=== PATIENT | male | born 1940 | race Caucasian/White ===

== ENCOUNTER → 2016-12-10 | Outpatient (CLI) | payer MEDICARE, BC ==
[~2016-12-10] MED LIST: 1-ME1LIQ PO; ARIC5TAB PO; ASPI81 CHEW; ATOR20TA42 PO; COUM3TAB PO; FURO20TA PO; LAMO150T PO; LISI40TA PO; POTA-267 PO; SERT-129 PO; TRAZ150T75 PO; XANA2TAB2 PO
[2016-12-10 12:10] LABS: INTERNATIONAL NORMALIZED RATIO 2.9 RATIO; PROTHROMBIN TIME - PATIENT 33.5 SEC (9.8-11.6)
== END ==
LOC: CLAB 11:37
PROVIDERS: ATTEND Internal Medicine Interventional Cardiology
DX: Z79.01 Long term (current) use of anticoagulants (principal)
CPT/HCPCS: 36415; 85610

== ENCOUNTER → 2017-01-22 | Outpatient (CLI) | payer MEDICARE, BC ==
[2017-01-22 16:01] LABS: INTERNATIONAL NORMALIZED RATIO 3.2 RATIO; PROTHROMBIN TIME - PATIENT 36.8 SEC (9.8-11.6)
== END ==
LOC: CLAB 14:39
PROVIDERS: ATTEND Internal Medicine Interventional Cardiology
DX: Z51.81 Encounter for therapeutic drug level monitoring (principal); Z79.01 Long term (current) use of anticoagulants
CPT/HCPCS: 36415; 85610

== ENCOUNTER → 2017-03-19 | Outpatient (CLI) | payer MEDICARE, BC ==
[2017-03-19 15:33] LABS: INTERNATIONAL NORMALIZED RATIO 2.8 RATIO; PROTHROMBIN TIME - PATIENT 32.8 SEC (9.8-11.6)
== END ==
LOC: CLAB 14:53
PROVIDERS: ATTEND Internal Medicine Interventional Cardiology
DX: Z79.01 Long term (current) use of anticoagulants (principal)
CPT/HCPCS: 36415; 85610

== ENCOUNTER → 2017-04-17 | Outpatient (CLI) | payer MEDICARE, BC ==
[2017-04-17 13:39] LABS: INTERNATIONAL NORMALIZED RATIO 3.3 RATIO; PROTHROMBIN TIME - PATIENT 38.6 SEC (9.8-11.6)
== END ==
LOC: CLAB 13:08
PROVIDERS: ATTEND Internal Medicine Interventional Cardiology
DX: Z79.01 Long term (current) use of anticoagulants (principal)
CPT/HCPCS: 36415; 85610

== ENCOUNTER → 2017-06-16 | Outpatient (CLI) | payer MEDICARE, BC ==
[2017-06-16 14:38] LABS: INTERNATIONAL NORMALIZED RATIO 1.9 RATIO; PROTHROMBIN TIME - PATIENT 21.5 SEC (9.8-11.6)
== END ==
LOC: CLAB 14:13
PROVIDERS: ATTEND Internal Medicine Interventional Cardiology
DX: Z79.01 Long term (current) use of anticoagulants (principal)
CPT/HCPCS: 36415; 85610

== ENCOUNTER → 2017-07-08 | Outpatient (CLI) | payer MEDICARE, BC ==
[2017-07-08 09:19] LABS: INTERNATIONAL NORMALIZED RATIO 4.5 RATIO; PROTHROMBIN TIME - PATIENT 53.5 SEC (9.8-11.6)
== END ==
LOC: CLAB 08:41
PROVIDERS: ATTEND Internal Medicine Interventional Cardiology
DX: Z79.01 Long term (current) use of anticoagulants (principal)
CPT/HCPCS: 36415; 85610

== ENCOUNTER → 2017-07-16 | Outpatient (CLI) | payer MEDICARE, BC ==
[2017-07-16 12:34] LABS: PROTHROMBIN TIME - PATIENT 92.6 SEC (9.8-11.6)
[2017-07-16 12:50] LABS: INTERNATIONAL NORMALIZED RATIO 7.7 RATIO
== END ==
LOC: CLAB 11:56
PROVIDERS: ATTEND Internal Medicine Interventional Cardiology
DX: Z79.01 Long term (current) use of anticoagulants (principal)
CPT/HCPCS: 36415; 85610

== ENCOUNTER → 2017-07-18 | Outpatient (CLI) | payer MEDICARE, BC ==
[2017-07-18 10:24] LABS: PROTHROMBIN TIME - PATIENT 84.3 SEC (9.8-11.6)
== END ==
LOC: CLAB 09:43
PROVIDERS: ATTEND Internal Medicine Interventional Cardiology
DX: Z79.01 Long term (current) use of anticoagulants (principal)
CPT/HCPCS: 36415; 85610

== ENCOUNTER → 2017-07-21 | Outpatient (CLI) | payer MEDICARE, BC ==
[2017-07-21 09:59] LABS: HEMATOCRIT 31.4 % (39.0-51.0); MEAN CELL VOLUME 90.1 FL (80.0-100.0); MEAN CORPUSCULAR HEMOGLOBIN 29.8 PG (27.0-34.0); MEAN CORPUSCULAR HGB CONC 33.1 % (32.0-36.0); PLATELET COUNT 237 TH/MM3 (150-450); RED BLOOD COUNT 3.49 MIL/MM3 (4.50-5.90); RED CELL DISTRIBUTION WIDTH 12.7 % (11.6-17.2); REVIEW FLAG FINAL; WHITE BLOOD COUNT 6.4 TH/MM3 (4.0-11.0)
[2017-07-21 10:01] LABS: INTERNATIONAL NORMALIZED RATIO 2.2 RATIO
[2017-07-21 10:13] LABS: BICARBONATE 27.3 MEQ/L (21.0-32.0); POTASSIUM 4.1 MEQ/L (3.5-5.1)
[2017-07-21 10:17] LABS: HDL CHOLESTEROL 66.5 MG/DL (40.0-60.0)
== END ==
LOC: CLAB 09:24
PROVIDERS: ATTEND Internal Medicine Interventional Cardiology
DX: E78.00 Pure hypercholesterolemia, unspecified (principal); Z79.01 Long term (current) use of anticoagulants; Z79.899 Other long term (current) drug therapy
CPT/HCPCS: 36415; 80048; 80061; 84450; 84460; 85027; 85610

== ENCOUNTER → 2017-08-05 | Outpatient (CLI) | payer MEDICARE, BC ==
[2017-08-05 10:36] LABS: INTERNATIONAL NORMALIZED RATIO 4.1 RATIO; PROTHROMBIN TIME - PATIENT 48.2 SEC (9.8-11.6)
== END ==
LOC: CLAB 10:09
PROVIDERS: ATTEND Internal Medicine Interventional Cardiology
DX: Z79.01 Long term (current) use of anticoagulants (principal)
CPT/HCPCS: 36415; 85610

== ENCOUNTER → 2017-08-18 | Outpatient (CLI) | payer MEDICARE, BC ==
[2017-08-18 12:21] LABS: INTERNATIONAL NORMALIZED RATIO 2.9 RATIO; PROTHROMBIN TIME - PATIENT 33.5 SEC (9.8-11.6)
== END ==
LOC: CLAB 11:48
PROVIDERS: ATTEND Internal Medicine Interventional Cardiology
DX: Z79.01 Long term (current) use of anticoagulants (principal)
CPT/HCPCS: 36415; 85610

== ENCOUNTER → 2017-10-08 | Outpatient (CLI) | payer MEDICARE, BC ==
[2017-10-08 14:14] LABS: INTERNATIONAL NORMALIZED RATIO 1.6 RATIO; PROTHROMBIN TIME - PATIENT 16.1 SEC (9.8-11.6)
== END ==
LOC: CLAB 13:37
PROVIDERS: ATTEND Internal Medicine Interventional Cardiology
DX: Z79.01 Long term (current) use of anticoagulants (principal)
CPT/HCPCS: 36415; 85610

== ENCOUNTER → 2017-10-15 | Outpatient (CLI) | payer MEDICARE, BC ==
[2017-10-15 15:20] LABS: INTERNATIONAL NORMALIZED RATIO 2.3 RATIO; PROTHROMBIN TIME - PATIENT 23.2 SEC (9.8-11.6)
== END ==
LOC: CLAB 14:22
PROVIDERS: ATTEND Internal Medicine Interventional Cardiology
DX: Z79.01 Long term (current) use of anticoagulants (principal)
CPT/HCPCS: 36415; 85610

== ENCOUNTER → 2017-11-10 | Outpatient (CLI) | payer MEDICARE, BC ==
[2017-11-10 11:37] LABS: INTERNATIONAL NORMALIZED RATIO 1.6 RATIO; PROTHROMBIN TIME - PATIENT 16.2 SEC (9.8-11.6)
== END ==
LOC: CLAB 10:48
PROVIDERS: ATTEND Internal Medicine Interventional Cardiology
DX: Z79.01 Long term (current) use of anticoagulants (principal)
CPT/HCPCS: 36415; 85610

== ENCOUNTER → 2017-11-26 | Outpatient (CLI) | payer MEDICARE, BC ==
[2017-11-26 10:09] LABS: INTERNATIONAL NORMALIZED RATIO 2.5 RATIO; PROTHROMBIN TIME - PATIENT 25.1 SEC (9.8-11.6)
== END ==
LOC: CLAB 09:29
PROVIDERS: ATTEND Internal Medicine Interventional Cardiology
DX: Z79.01 Long term (current) use of anticoagulants (principal)
CPT/HCPCS: 36415; 85610

== ENCOUNTER → 2018-01-05 | Outpatient (CLI) | payer MEDICARE, BC ==
[2018-01-05 11:52] LABS: INTERNATIONAL NORMALIZED RATIO 2.9 RATIO; PROTHROMBIN TIME - PATIENT 28.8 SEC (9.8-11.6)
== END ==
LOC: CLAB 11:20
PROVIDERS: ATTEND Internal Medicine Interventional Cardiology
DX: Z79.01 Long term (current) use of anticoagulants (principal)
CPT/HCPCS: 36415; 85610

== ENCOUNTER → 2018-02-06 | Outpatient (CLI) | payer MEDICARE, BC ==
[2018-02-06 12:15] LABS: INTERNATIONAL NORMALIZED RATIO 3.3 RATIO; PROTHROMBIN TIME - PATIENT 33.5 SEC (9.8-11.6)
== END ==
LOC: CLAB 11:40
PROVIDERS: ATTEND Internal Medicine Interventional Cardiology
DX: Z79.01 Long term (current) use of anticoagulants (principal)
CPT/HCPCS: 36415; 85610

== ENCOUNTER → 2018-03-20 | Outpatient (CLI) | DX: E78.00 Pure hypercholesterolemia, unspecified (principal); R60.0 Localized edema; I25.10 Atherosclerotic heart disease of native coronary artery without angina pectoris; I11.9 Hypertensive heart disease without heart failure; R00.1 Bradycardia, unspecified; I36.1 Nonrheumatic tricuspid (valve) insufficiency; I34.0 Nonrheumatic mitral (valve) insufficiency; Z79.899 Other long term (current) drug therapy; Z79.01 Long term (current) use of anticoagulants ==

== ENCOUNTER → 2018-04-16 | Outpatient (CLI) | payer MEDICARE, BC ==
[2018-04-16 14:20] LABS: PROTHROMBIN TIME - PATIENT 50.2 SEC (9.8-11.6)
== END ==
LOC: CLAB 13:55
PROVIDERS: ATTEND Internal Medicine Interventional Cardiology
DX: Z79.01 Long term (current) use of anticoagulants (principal)
CPT/HCPCS: 36415; 85610

== ENCOUNTER → 2018-04-22 | Outpatient (CLI) | payer MEDICARE, BC ==
[2018-04-22 12:48] LABS: INTERNATIONAL NORMALIZED RATIO 1.9 RATIO; PROTHROMBIN TIME - PATIENT 19.3 SEC (9.8-11.6)
== END ==
LOC: PLAB 12:14
PROVIDERS: ATTEND Internal Medicine Interventional Cardiology
DX: Z79.01 Long term (current) use of anticoagulants (principal); Z95.2 Presence of prosthetic heart valve
CPT/HCPCS: 36415; 85610

== ENCOUNTER → 2018-04-29 | Outpatient (CLI) | payer MEDICARE, BC ==
[2018-04-29 14:39] LABS: INTERNATIONAL NORMALIZED RATIO 3.3 RATIO; PROTHROMBIN TIME - PATIENT 33.7 SEC (9.8-11.6)
== END ==
LOC: CLAB 14:09
PROVIDERS: ATTEND Internal Medicine Interventional Cardiology
DX: Z79.01 Long term (current) use of anticoagulants (principal)
CPT/HCPCS: 36415; 85610

== ENCOUNTER 2018-06-09 16:24 | Inpatient (IN) ==
[2018-06-09 19:31] LABS: Baso % (Auto) 0.7 % (0.0-2.0); Eos # (Auto) 0.1 th/mm3 (0.0-0.4); Eos % (Auto) 1.9 % (0.0-4.0); Hematocrit 30.6 % (39.0-51.0); Hemoglobin 10.2 gm/dL (13.0-17.0); Lymph # (Auto) 1.3 th/mm3 (1.0-4.8); Lymph % (Auto) 19.9 % (9.0-44.0); Mean Corpuscular HGB Conc 33.2 % (32.0-36.0); Mean Corpuscular Volume 93.2 fL (80.0-100.0); Mean Platelet Volume 8.1 fL (7.0-11.0); Mono # (Auto) 0.4 th/mm3 (0.0-0.9); Neut # (Auto) 4.7 th/mm3 (1.8-7.7); Neut % (Auto) 71.5 % (16.0-70.0); Platelet Count 213 th/mm3 (150-450); Red Blood Count 3.29 mil/mm3 (4.50-5.90); Red Cell Distribution Width 13.5 % (11.6-17.2); White Blood Count 6.6 th/mm3 (4.0-11.0)
[2018-06-09 19:55] LABS: Albumin 3.8 g/dL (3.4-5.0); Anion Gap 9 meq/L (5-15); Aspartate Aminotransferase 26 U/L (15-37); Blood Urea Nitrogen 53 mg/dL (7-18); Calcium 9.1 mg/dL (8.5-10.1); Carbon Dioxide 21.1 meq/L (21.0-32.0); Chloride 111 meq/L (98-107); Glomerular Filtration Rate 35 mL/min (>89); Glucose,Random 88 mg/dL (74-106); Potassium 6.2 meq/L (3.5-5.1); Sodium 141 meq/L (136-145)
[2018-06-09 19:57] LABS: Alanine Aminotransferase 23 U/L (12-78)
[2018-06-09 19:58] LABS: Alkaline Phosphatase 102 U/L (45-117); Total Protein 8.4 g/dL (6.4-8.2)
--- NOTE | 2018-06-09 22:58 | XR ---
EXAM DATE: 06/09/2018 10:53 PM EDT AGE/SEX: 77 years / Male INDICATIONS: Cough. Congestion. CLINICAL DATA: This is the patient's initial encounter. Patient reports that signs and symptoms have been present for 3 days and indicates a pain score of 5/10. MEDICAL/SURGICAL HISTORY: Cardiovascular disease. CABG. COMPARISON: [facility], CHEST SINGLE AP, 07/25/2016. . FINDINGS: Sternotomy wires and cardiomegaly are noted. Mediastinal clips are present. Lungs are clear. CONCLUSION: Clear lungs. Electronically signed by: Guy Regalado MD 06/09/2018 10:56 PM EDT
--- NOTE | 2018-06-09 23:09 | ED ---
HPI General Chief complaint: Recheck/Abnormal Lab/Rx Stated complaint: [facility] Time Seen by Provider: 06/09/18 22:32 Source: patient Limitations: no limitations History of Present Illness HPI narrative: The patient is a 77 year old male who presents to the [facility] emergency department with a history of being told that he needed to come to the emergency department for laboratory studies as his potassium was noted to be high as an outpatient earlier today. The patient reports that he went to his [facility] primary care physician earlier today and had his usual exam and outpatient labs. He was called at home and told that the potassium was high. The patient is unsure whether he is on any potassium supplementation. He does not know the name of his medications, however his daughter will be bringing his list in the ED. the patient denies having any known prior history of kidney disease. The patient reports that he has felt well. He denies having any palpitations, chest pain, weakness, numbness or tingling to his extremities. Otherwise on review of systems, the patient denies having any known recent fevers, cough, congestion, neck pain, shortness of breath, abdominal pain, vomiting, diarrhea, urinary symptoms, or other neurologic symptoms. Related Data Allergies Allergy/AdvReac Type Severity Reaction Status Date / Time ibuprofen Allergy Severe Anaphylaxis Verified 06/09/18 23:21 Review of Systems ROS: all other systems reviewed are negative (Except for that which was mentioned in the HPI.) [facility] Medical History Medical History HTN (hypertension) (Acute) High cholesterol (Acute) Surgical History Surgical History H/O mitral valve replacement (Acute) History of appendectomy (Acute) History of quadruple bypass (Acute) Hx of heart surgery (Acute) Mechanical heart valve present (Acute) Social History Social History Substance History: No History of Abuse Smoking Status: Former smoker How Often Do You Have a Drink Containing Alcohol: Never Recent Travel in [facility] within the Last 8 Weeks: No Recent Out of Country Travel within the Last 8 Weeks: No Immunization History Tetanus Immunization: Unsure Hx Influenza Vaccine This Season: No Exam Const General: cooperative, no acute distress and well developed Nutritional Appearance: well nourished Orientation: alert, awake and oriented x3 HENMT Head: normocephalic and atraumatic Nose: no nasal discharge and no epistaxis Mouth: moist mucous membranes Throat: posterior oropharynx normal and uvula midline Eyes Sclera: normal sclerae Pupils: PERRL Neck Neck: no meningeal signs, trachea midline and no JVD Resp Effort & Inspection: no use of accessory muscles Auscultation: clear to auscultation bilaterally Cardio Rate: regular rate Rhythm: regular rhythm Heart Sounds: click (Audible click related to mitral valve replacement.) and no murmurs GI Inspection: non-distended Palpation: soft, no hepatosplenomegaly and nontender Auscultation: normal bowel sounds Back/Spine/Pelvis Back: no CVA tenderness Skin General: dry skin (warm) Neuro General: alert, awake and oriented x3 Cranial Nerves: other (No facial asymmetry) Speech: speech normal Motor: no movement abnormalities noted Extrem General: normal to inspection (No calf tenderness on palpation. 2+ pulses in all 4 extremities.), no clubbing, no cyanosis and no edema Psych Mood: congruent mood Affect: normal affect Judgment: judgment good Course Consultations Consultation #1: The patient's case including history, pertinent physical examination findings, and laboratory studies were discussed with Dr. Tan. It was agreed that the patient would be admitted to the hospitalist service. Initial Documented Vital Signs Temperature 98.8 F 06/09/18 16:43 Pulse Rate 59 L 06/09/18 16:43 Respiratory Rate 16 06/09/18 16:43 Blood Pressure 151/68 H 06/09/18 16:43 Pulse Oximetry 98 06/09/18 16:43 Last Documented Vital Signs Temperature 98.8 F 06/09/18 16:43 Pulse Rate 54 L 06/09/18 23:59 Respiratory Rate 16 06/09/18 23:59 Blood Pressure 180/106 H 06/09/18 23:59 Pulse Oximetry 98 06/09/18 23:59 Medical Decision Making MDM Narrative Medical decision making narrative: During the course of the patient's emergency department visit, the patient's history, examination, and differential diagnosis were reviewed with the patient. The patient was placed on a surveillance system monitor with oximetry and frequent blood pressure monitoring. The patient had IV access obtained and blood work sent for analysis. The diagnostic evaluation was started regarding the patient's hyperkalemia. An EKG was done on arrival that showed some peaked T waves in V3, V4. The patient's diagnostic evaluation revealed a potassium of 6.2. The patient was given calcium chloride 1 g IV, Kayexalate 15 mL p.o. 1. The patient was given regular insulin and dextrose to shift the potassium. The patient's chemistry was otherwise remarkable for a protein of 8.4, GFR 35, creatinine of 1.86, chloride 111, BUN 53, PT 22.4, INR 2.2, hemoglobin is 6.6, platelets 213 with 71.5 neutrophils, 10.2 hemoglobin. The patient's chest x-ray reveals no acute abnormality. The patient will be admitted to the hospital for renal insufficiency associated with hyperkalemia. The patient's results were discussed with the patient, including the plan of care. I explained that further testing and/ or monitoring is indicated based on the patient's history, examination, and/ or laboratory findings. Therefore, I recommended admission for additional evaluation. The patient expressed understanding and was agreeable with this plan. The patient was admitted to the hospital in stable condition and sent to a bed under the care of the [facility] service. Differential Diagnosis Differential Diagnosis: Lab error, versus renal failure with hyperkalemia, versus oversupplementation with p.o. potassium supplement, versus DHRUV inhibitor induced hyperkalemia Medical Records Medical records reviewed: Yes I reviewed the patient's medical records. Lab Data Lab results reviewed: Yes I reviewed the patient's lab results. Result diagrams: 06/09/18 17:55 06/09/18 17:55 Lab Results 06/09/18 06/09/18 Range/Units 17:55 17:55 WBC 6.6 (4.0-11.0) th/mm3 RBC 3.29 L (4.50-5.90) mil/mm3 Hgb 10.2 L (13.0-17.0) gm/dL Hct 30.6 L (39.0-51.0) % MCV 93.2 (80.0-100.0) fL MCH 31.0 (27.0-34.0) pg MCHC 33.2 (32.0-36.0) % RDW 13.5 (11.6-17.2) % Plt Count 213 (150-450) th/mm3 MPV 8.1 (7.0-11.0) fL Neut % (Auto) 71.5 H (16.0-70.0) % Lymph % (Auto) 19.9 (9.0-44.0) % [place] % (Auto) 6.0 (0.0-8.0) % Eos % (Auto) 1.9 (0.0-4.0) % Baso % (Auto) 0.7 (0.0-2.0) % Neut # (Auto) 4.7 (1.8-7.7) th/mm3 Lymph # (Auto) 1.3 (1.0-4.8) th/mm3 [place] # (Auto) 0.4 (0.0-0.9) th/mm3 Eos # (Auto) 0.1 (0.0-0.4) th/mm3 Baso # (Auto) 0.0 (0.0-0.2) th/mm3 WBC Differential . Differential Comment Auto diff final Sodium 141 (136-145) meq/L Potassium 6.2 H (3.5-5.1) meq/L Chloride 111 H (98-107) meq/L Carbon Dioxide 21.1 (21.0-32.0) meq/L Anion Gap 9 (5-15) meq/L BUN 53 H (7-18) mg/dL Creatinine 1.86 H (0.60-1.30) mg/dL Estimated GFR 35 L (>89) mL/min Random Glucose 88 (74-106) mg/dL Calcium 9.1 (8.5-10.1) mg/dL Total Bilirubin 0.3 (0.2-1.0) mg/dL AST 26 (15-37) U/L ALT 23 (12-78) U/L Alkaline Phosphatase 102 (45-117) U/L Total Protein 8.4 H (6.4-8.2) g/dL Albumin 3.8 (3.4-5.0) g/dL Imaging Data Radiologist's impression: Chest X-Ray 06/09/18 22:34 CONCLUSION: Clear lungs. ECG Data Attestation: I personally reviewed and interpreted this ECG as follows: Interpretation: The patient had an EKG done on arrival that shows a heart rate of 50, QRS duration 101 ms, QTC [address] segment elevation. T waves are inverted in aVL, V1, V2. Peak T waves are noted in V3, V4. Discharge Plan Discharge Disposition Patient Disposition: 30 Still Patient Discharge Details Diagnosis: Acute hyperkalemia, Renal insufficiency Physicians Team ED Provider: Justina Saleem Primary Care Provider: [facility] Attending Provider: Carole Tan Discharge Interventions Interventions: Vital Signs Last Done: 06/09/18 23:59 Status ED Status: Admitted Patient
[2018-06-09] MEDS ORDERED: Calcium Chloride Inj 1 GM in Dextrose 5% in Water Inj 100 ML IV.SIG ONE ×2 (23:12)
[2018-06-09] MEDS ORDERED: Sodium Polystyrene Sulfonate/Sorbitol Liq 15 GM/60 ML UDC PO ONE (23:13)
[2018-06-09] MEDS ORDERED: Dextrose 50% in Water 50 ML Vial IV.PUSH ONE (23:13)
[2018-06-10] MEDS ORDERED: Acetaminophen 325 MG Tablet PO PRN (03:41)
[2018-06-10] MEDS ORDERED: Temazepam 15 MG Capsule PO PRN (03:41)
[2018-06-10] MEDS ORDERED: Bisacodyl 10 MG Supp RECTAL PRN (03:41)
[2018-06-10] MEDS: Sod Chloride 0.9% Inj 1,000 ML IV.CONT SCH ×2 (04:22→14:56)
[2018-06-10 06:34] LABS: Calcium 9.7 mg/dL (8.5-10.1); Carbon Dioxide 22.5 meq/L (21.0-32.0); Potassium 5.4 meq/L (3.5-5.1)
[2018-06-10] MEDS: Senna/Docusate Sodium 8.6/50 MG Tablet PO SCH ×2 (08:44→21:16)
[2018-06-10 14:09] LABS: INR 2.4 Ratio; Prothrombin Time 23.9 sec (9.8-11.6)
--- NOTE | 2018-06-10 14:09 | P.HPIM ---
History of Present Illness Primary Care Physician: [facility] Chief Complaint: My doctor told me to come here because of abnormal labs History of Present Illness: 77-year-old white male with a history of hypertension, hyperlipidemia, coronary artery disease was sent to the emergency room secondary to having abnormal labs particular elevation in potassium by his primary care physician through the [place]. Patient states that he was asymptomatic with no symptoms of chest pain, palpitations, muscle weakness or numbness nor any cramping. He says he does not take potassium supplements. Reviewing his medication list with him it seems like he is on DHRUV inhibitor lisinopril. He is urinating without any difficulty. He has no other complaints at this time. - Diagnosis (1) Acute hyperkalemia (2) CKD (chronic kidney disease) stage 3, GFR 30-59 ml/min Inpatient Certification: I certify that the inpatient services were ordered in accordance with Medicare regulations governing the order. This includes certification that hospital inpatient services are reasonable and necessary and in the case of services not specified as inpatient-only under 42 CFR 419.22(n), that they are appropriately provided as inpatient services in accordance to with the 2-midnight benchmark under 43 CFR 412.3(e) Estimated Total Length of Stay (Days): 2 Plans for Post Hospital Care: Home Review of Systems All other systems reviewed negative except as stated in HPI PMFSH - History History Provided By: Patient - Medical History Medical History: Medical History (Last Reviewed 06/10/18 @ 14:01 by Sera Colvin MD) HTN (hypertension) High cholesterol - Surgical History Surgical History: Surgical History (Last Reviewed 06/10/18 @ 14:01 by Sera Colvin MD) H/O mitral valve replacement History of appendectomy History of quadruple bypass Hx of heart surgery Mechanical heart valve present - Family History Family History: Family History (Last Updated 06/10/18 @ 14:01 by Sera Colvin MD) Mother COPD (chronic obstructive pulmonary disease) Father Alcohol abuse - Tobacco History Smoking Status: Former smoker - Alcohol History How Often Do You Have a Drink Containing Alcohol: Never - Substance Use History Substance History: No History of Abuse - Travel History Recent Travel in the [place] Within the Last 8 Weeks: No Recent Travel Out of the Country Within the Last 8 Weeks: No - Immunization History Tetanus Immunization: Unsure Hx Influenza Vaccine This Season: No Medications and Allergies Active Medications: Active Medications Acetaminophen (Tylenol) 650 mg PO Q4H PRN PRN Reason: Temp > 100.4 Al Hydroxide/Mg Hydroxide (Milk Of Magnesia Liq) 30 ml PO Q12H PRN PRN Reason: Mild Constipation Bisacodyl (Dulcolax Supp) 10 mg RECTAL DAILY PRN PRN Reason: SEVERE CONSITIPATION Sodium Chloride (Ns Inj) 1,000 mls @ 100 mls/hr IV.CONT .Q10H [facility] Last Infusion: 06/10/18 13:44 Dose: Infused Lactulose (Lactulose Liq) 30 ml PO DAILY PRN PRN Reason: SEVERE CONSITIPATION Ondansetron HCl (Zofran Inj) 4 mg IV.PUSH Q6H PRN PRN Reason: NAUSEA OR VOMITING Senna/Docusate Sodium (Beckie-Colace) 1 tab PO BID [facility] Last Admin: 06/10/18 08:44 Dose: Not Given Sennosides (Senokot) 17.2 mg PO Q12H PRN PRN Reason: Moderate Constipation Temazepam (Restoril) 15 mg PO HS PRN PRN Reason: INSOMNIA Allergies Allergy/AdvReac Type Severity Reaction Status Date / Time ibuprofen Allergy Severe Anaphylaxis Verified 06/09/18 23:21 Home Medications Medication Instructions Recorded Confirmed Type alprazolam 2 mg PO HS PRN 06/10/18 06/10/18 History aspirin [Aspir-81] 81 mg PO DAILY 06/10/18 06/10/18 History atorvastatin 40 mg PO DAILY 06/10/18 06/10/18 History furosemide 20 mg PO DAILY 06/10/18 06/10/18 History lamotrigine 150 mg PO HS 06/10/18 06/10/18 History lamotrigine 300 mg PO DAILY 06/10/18 06/10/18 History lisinopril 40 mg PO DAILY 06/10/18 06/10/18 History sertraline 100 mg PO DAILY 06/10/18 06/10/18 History trazodone 100 mg PO DAILY 06/10/18 06/10/18 History warfarin 3 mg PO DAILY 06/10/18 06/10/18 History Exam Vital signs: Vital Signs 06/09/18 16:43 06/09/18 23:00 06/09/18 23:59 Temperature 98.8 F Pulse Rate 59 L 52 L 54 L Respiratory Rate 16 18 16 Blood Pressure 151/68 H 169/77 H 180/106 H Pulse Oximetry 98 99 98 06/10/18 00:40 06/10/18 03:00 06/10/18 03:41 Temperature 98.6 F Pulse Rate 42 L 56 L 55 L Respiratory Rate 16 16 16 Blood Pressure 163/72 H 165/72 H Pulse Oximetry 99 99 06/10/18 05:25 Temperature Pulse Rate 48 L Respiratory Rate 16 Blood Pressure 146/66 H Pulse Oximetry 98 Intake & Output 06/09/18 06/10/18 06/10/18 18:59 06:59 18:59 Intake Total 1110 / 1110 Balance 1110 / 1110 Weight 71.668 kg Intake: IV 1110 / 1110 NS Inj 1,000 ML @ 100 mls/hr IV 1000 / 1000 .CONT .Q10H [facility] Rx#:[id number] Narrative: GENERAL: Well-nourished well-developed white female in no acute distress SKIN: Warm and dry. HEAD: Atraumatic. Normocephalic. EYES: Pupils equal and round. No scleral icterus. No injection or drainage. ENT: No nasal bleeding or discharge. Mucous membranes pink and moist. NECK: Trachea midline. No JVD. CARDIOVASCULAR: Regular rate and rhythm. RESPIRATORY: No accessory muscle use. Clear to auscultation. Breath sounds equal bilaterally. GASTROINTESTINAL: Abdomen soft, non-tender, nondistended. Hepatic and splenic margins not palpable. MUSCULOSKELETAL: Extremities without clubbing, cyanosis, or edema. No obvious deformities. NEUROLOGICAL: Awake and alert to person place time and situation. No obvious cranial nerve deficits. Motor grossly within normal limits. Five out of 5 muscle strength in the arms and legs. Normal speech. PSYCHIATRIC: Appropriate mood and affect; insight and judgment normal. Results - Labs CBC & Chem 7: 06/09/18 17:55 06/10/18 04:52 Labs: Short CBC 06/09/18 Range/Units 17:55 WBC 6.6 (4.0-11.0) th/mm3 Hgb 10.2 L (13.0-17.0) gm/dL Hct 30.6 L (39.0-51.0) % Plt Count 213 (150-450) th/mm3 [facility] 06/09/18 06/10/18 17:55 04:52 Sodium 141 142 Potassium 6.2 H 5.4 H D Chloride 111 H 112 H Carbon Dioxide 21.1 22.5 BUN 53 H 50 H Creatinine 1.86 H 1.73 H Calcium 9.1 9.7 Liver Function 06/09/18 Range/Units 17:55 Total Bilirubin 0.3 (0.2-1.0) mg/dL AST 26 (15-37) U/L ALT 23 (12-78) U/L Alkaline Phosphatase 102 (45-117) U/L Albumin 3.8 (3.4-5.0) g/dL - Imaging Impressions Chest X-Ray 06/09/18 22:34 CONCLUSION: Clear lungs. Caprini VTE Risk Assessment Caprini VTE Risk Assessment: Moderate/High Risk (score >= 2) Caprini Risk Assessment Model: Point Value = 1 Point Value = 2 Point Value = 3 Point Value = 5 Age 41-60 Minor surgery BMI > 25 kg/m2 Swollen legs Varicose veins or History of unexplained or recurrent spontaneous Oral contraceptives or hormone replacement Sepsis (< 1 month) Serious lung disease, including pneumonia (< 1 month) Abnormal pulmonary function Acute myocardial infarction Congestive heart failure (< 1 month) History of inflammatory bowel disease Medical patient at bed rest Age 61-74 Arthroscopic surgery Major open surgery (> 45 min) Laparoscopic surgery (> 45 min) Malignancy Confined to bed (> 72 hours) Immobilizing plaster cast Central venous access Age >= 75 History of VTE Family history of VTE Factor V Leiden Prothrombin [id number] Lupus anticoagulant Anticardiolipin antibodies Elevated serum homocysteine Heparin-induced thrombocytopenia Other congenital or acquired thrombophilia Stroke (< 1 month) Elective arthroplasty Hip, pelvis, or leg fracture Acute spinal cord injury (< 1 month) Prophylaxis Regimen: Total Risk Factor Score Risk Level Prophylaxis Regimen 0-1 Low Early ambulation 2 Moderate Order ONE of the following: *Sequential Compression Device (SCD) *Heparin 5000 units SQ BID 3-4 Higher Order ONE of the following medications: *Heparin 5000 units SQ TID *Enoxaparin/Lovenox 40 mg SQ daily (WT < 150 kg, CrCl > 30 mL/min) *Enoxaparin/Lovenox 30 mg SQ daily (WT < 150 kg, CrCl > 10-29 mL/min) *Enoxaparin/Lovenox 30 mg SQ BID (WT < 150 kg, CrCl > 30 mL/min) AND/OR *Sequential Compression Device (SCD) 5 or more Highest Order ONE of the following medications: *Heparin 5000 units SQ TID (Preferred with Epidurals) *Enoxaparin/Lovenox 40 mg SQ daily (WT < 150 kg, CrCl > 30 mL/min) *Enoxaparin/Lovenox 30 mg SQ daily (WT < 150 kg, CrCl > 10-29 mL/min) *Enoxaparin/Lovenox 30 mg SQ BID (WT < 150 kg, CrCl > 30 mL/min) AND *Sequential Compression Device (SCD) Assessment and Plan - Assessment (1) Acute hyperkalemia Code(s): E87.5 - Hyperkalemia Status: Acute (2) CKD (chronic kidney disease) stage 3, GFR 30-59 ml/min Code(s): N18.3 - Chronic kidney disease, stage 3 (moderate) Status: Acute - Plan 77-year-old white male with a history of hypertension hyperlipidemia CAD was sent to the emergency room secondary to abnormal lab work by his primary care physician 1. Severe hyperkalemia Monitor on telemetry; intervention done in the emergency room with dextrose and insulin with calcium and Kayexalate Stop home lisinopril and repeat levels 2. Hypertension, chronic essentialstop lisinopril due to severe hyperkalemia 3. Hyperlipidemiaresume statin 4. CAD with history of mitral valve replacementresume aspirin and warfarin 5. Chronic kidney disease stage IIIhold lisinopril 6. DVT prophylaxiswarfarin, monitor PT/INR
[2018-06-10] MEDS: Sertraline 100 MG Tablet PO SCH (15:48)
[2018-06-10] MEDS: Furosemide 20 MG Tablet PO SCH (15:49)
[2018-06-10] MEDS: amLODIPine 5 MG Tablet PO SCH (15:49)
[2018-06-10] MEDS ORDERED: traZODone 100 MG Tablet PO SCH (21:00)
[2018-06-10] MEDS ORDERED: lamoTRIgine 100 MG Tablet PO SCH (21:00)
[2018-06-11] MEDS: Sod Chloride 0.9% Inj 1,000 ML IV.CONT SCH ×2 (01:37→09:40)
[2018-06-11 01:40] LABS: Bilirubin,Urine Negative (Negative); Clarity,Urine Clear (Clear); Color,Urine Straw (Yellw/Straw); Glucose,Urine (UA) Negative (Negative); Hyaline Casts,Urine 3 /lpf (0-3); Leukocyte Esterase,Urine Negative (Negative); Mucus,Urine Few /lpf (Occasional); Nitrite,Urine Negative (Negative); Squamous Epithelial Cell,Urine <1 /hpf (0-5)
[2018-06-11 04:39] VITALS: RESP 16
[2018-06-11 04:59] LABS: Baso # (Auto) 0.1 th/mm3 (0.0-0.2); Baso % (Auto) 1.1 % (0.0-2.0); Eos # (Auto) 0.2 th/mm3 (0.0-0.4); Eos % (Auto) 3.1 % (0.0-4.0); Hematocrit 24.6 % (39.0-51.0); Hemoglobin 8.5 gm/dL (13.0-17.0); Lymph # (Auto) 1.6 th/mm3 (1.0-4.8); Lymph % (Auto) 30.3 % (9.0-44.0); Mean Corpuscular HGB Conc 34.7 % (32.0-36.0); Mean Corpuscular Hemoglobin 31.8 pg (27.0-34.0); Mean Corpuscular Volume 91.8 fL (80.0-100.0); Mean Platelet Volume 7.7 fL (7.0-11.0); Mono # (Auto) 0.4 th/mm3 (0.0-0.9); Mono % (Auto) 6.7 % (0.0-8.0); Neut # (Auto) 3.2 th/mm3 (1.8-7.7); Neut % (Auto) 58.8 % (16.0-70.0); Platelet Count 175 th/mm3 (150-450); Red Blood Count 2.68 mil/mm3 (4.50-5.90); Red Cell Distribution Width 13.6 % (11.6-17.2); White Blood Count 5.4 th/mm3 (4.0-11.0)
[2018-06-11 05:00] LABS: INR 2.6 Ratio
[2018-06-11 05:32] LABS: Calcium 8.5 mg/dL (8.5-10.1); Carbon Dioxide 20.3 meq/L (21.0-32.0); Potassium 4.6 meq/L (3.5-5.1)
[2018-06-11] MEDS: Sertraline 100 MG Tablet PO SCH (08:21)
[2018-06-11] MEDS: Senna/Docusate Sodium 8.6/50 MG Tablet PO SCH (08:21)
[2018-06-11] MEDS: Furosemide 20 MG Tablet PO SCH (08:21)
[2018-06-11] MEDS: amLODIPine 5 MG Tablet PO SCH (08:21)
[2018-06-11] MEDS ORDERED: lamoTRIgine 100 MG Tablet PO SCH (09:00)
[2018-06-11 09:05] VITALS: PULSE 54
[2018-06-11 10:09] VITALS: BP 149/68; TEMP 97.9; O2SAT 96
--- NOTE | 2018-06-11 10:17 | P.PNIM ---
Subjective Interval history: FU hyperkalemia and GENIE. Patient states he is doing well. Thinks he is ready to go home. [facility] and is able to follow up outpatient. Blood pressure medications were discussed with patient and patient's daughter, also the intervention of checking BP at home. He states he fully understands. Denies any chest pain, sob, fever or chills. Ambulating to bathroom and halls well. Physical Exam Vital signs: Vital Signs 06/10/18 14:15 06/10/18 15:00 06/10/18 16:00 Temperature 98.6 F 98.6 F Pulse Rate 53 L 44 L 53 L Respiratory Rate 16 16 Blood Pressure 164/78 H 164/78 H Pulse Oximetry 98 98 06/10/18 17:00 06/10/18 18:00 06/10/18 19:00 Temperature Pulse Rate 53 L 66 56 L Respiratory Rate Blood Pressure Pulse Oximetry 06/10/18 20:00 06/10/18 21:00 06/11/18 00:00 Temperature 99.1 F 98.2 F Pulse Rate 55 L 55 L 57 L Respiratory Rate 16 15 Blood Pressure 156/58 H 183/77 H Pulse Oximetry 97 98 06/11/18 04:00 06/11/18 08:00 Temperature 97.4 F L 97.9 F Pulse Rate 45 L 54 L Respiratory Rate 16 16 Blood Pressure 151/71 H 149/68 H Pulse Oximetry 95 96 Intake & Output 06/10/18 06/11/18 06/11/18 18:59 06:59 18:59 Intake Total 2110 / 2110 1000 / 1000 Output Total 1200 / 1200 Balance 910 / 910 1000 / 1000 Intake: IV 1110 / 1110 1000 / 1000 NS Inj 1,000 ML @ 100 mls/hr IV 1000 / 1000 1000 / 1000 .CONT .Q10H [facility] Rx#:[id number] Oral 1000 / 1000 Output: Urine 1200 / 1200 Other: # Voids 1 Date of Last Bowel Movement 06/10/18 06/10/18 06/10/18 # Bowel Movements 1 Results - Labs CBC & Chem 7: 06/11/18 04:15 06/11/18 04:15 Laboratory Results - last 24 hr 06/10/18 06/11/18 06/11/18 13:26 01:15 04:15 WBC 5.4 RBC 2.68 L Hgb 8.5 L Hct 24.6 L MCV 91.8 MCH 31.8 MCHC 34.7 RDW 13.6 Plt Count 175 MPV 7.7 Neut % (Auto) 58.8 Lymph % (Auto) 30.3 [place] % (Auto) 6.7 Eos % (Auto) 3.1 Baso % (Auto) 1.1 Neut # (Auto) 3.2 Lymph # (Auto) 1.6 [place] # (Auto) 0.4 Eos # (Auto) 0.2 Baso # (Auto) 0.1 WBC Differential . Differential Comment Auto diff final PT 23.9 H INR 2.4 Sodium Potassium Chloride Carbon Dioxide Anion Gap BUN Creatinine Estimated GFR Random Glucose Calcium Urine Color Straw Urine Clarity Clear Urine pH 5.0 Ur Specific [place] 1.010 Urine Protein Negative Urine Glucose (UA) Negative Urine Ketones Negative Urine Occult Blood Negative Urine Nitrate Negative Urine Bilirubin Negative Urine Urobilinogen Less than 2 Ur Leukocyte Esterase Negative Urine RBC Less than 1 Urine WBC Less than 1 Ur Squamous Epith Cells <1 Hyaline Casts 3 Urine Mucus Few H Micro UA Comment Culture not ind Urine Culture Comments Culture not ind 06/11/18 06/11/18 04:15 04:15 WBC RBC Hgb Hct MCV MCH MCHC RDW Plt Count MPV Neut % (Auto) Lymph % (Auto) [place] % (Auto) Eos % (Auto) Baso % (Auto) Neut # (Auto) Lymph # (Auto) [place] # (Auto) Eos # (Auto) Baso # (Auto) WBC Differential Differential Comment PT 26.0 H INR 2.6 Sodium 144 Potassium 4.6 D Chloride 115 H Carbon Dioxide 20.3 L Anion Gap 9 BUN 36 H Creatinine 1.45 H Estimated GFR 47 L Random Glucose 87 Calcium 8.5 D Urine Color Urine Clarity Urine pH Ur Specific [place] Urine Protein Urine Glucose (UA) Urine Ketones Urine Occult Blood Urine Nitrate Urine Bilirubin Urine Urobilinogen Ur Leukocyte Esterase Urine RBC Urine WBC Ur Squamous Epith Cells Hyaline Casts Urine Mucus Micro UA Comment Urine Culture Comments Assessment and Plan - Assessment (1) Acute hyperkalemia Code(s): E87.5 - Hyperkalemia Status: Acute (2) CKD (chronic kidney disease) stage 3, GFR 30-59 ml/min Code(s): N18.3 - Chronic kidney disease, stage 3 (moderate) Status: Acute - Plan 77-year-old white male with a history of hypertension hyperlipidemia CAD was sent to the emergency room secondary to abnormal lab work by his primary care physician 1. Severe hyperkalemiaresolved potassium 4.6 Monitor on telemetry; intervention done in the emergency room with dextrose and insulin with calcium and Kayexalate Cont to stop lisinopril until evaluated outpatient 2. Hypertension, chronic essentialstop lisinopril due to severe hyperkalemia, amlodipine 5mg started and BP is improved Patient may need further titration [facility] with [facility] 3. Hyperlipidemiaresume statin 4. CAD with history of mitral valve replacementresume aspirin and warfarin, INR is therapeutic 5. Chronic kidney disease stage IIIhold lisinopril, creatine is at baseline. 6. DVT prophylaxiswarfarin, monitor PT/INR Discharge patient to home Condition on discharge: Improved faster then expected Regular Diet as tolerated Ad Melissa activity Rx written:Amlodipine 5mg daily [facility] and [facility] Discussed Condition With: Patient and patients daughter Discharge Planning: Patient will be discharged today
== END 2018-06-11 11:39 | disposition home or self-care (01) ==
LOC: NEPE 16:24 → NEDA 06-10 02:54 → HCIS 06-10 14:02 → N06 06-10 22:48
PROVIDERS: ADMIT Internal Medicine; ATTEND Internal Medicine